=== PATIENT | male | born 1980 | race Caucasian/White ===

== ENCOUNTER 2021-02-13 21:26 | Inpatient (IN) ==
[2021-02-13 21:55] LABS: Bilirubin,Urine Negative (Negative); Blood,Urine Negative (Negative); Clarity,Urine Clear (Clear); Color,Urine Light-Yellow (Yellow); Glucose,Urine (UA) Normal (Normal); Ketones,Urine Negative (Negative); Leukocyte Esterase,Urine Negative (Negative); Nitrite,Urine Negative (Negative); Protein,Urine Trace mg/dL (Neg-Trace); Specific Gravity,Urine 1.029 (1.010-1.025); Urobilinogen,Urine Normal (Normal)
[2021-02-13 22:05] LABS: Basophils % 0.4 %; Eosinophils # 0.2 K/mcL (0.0-0.6); Eosinophils % 2.5 %; Hemoglobin 13.4 g/dL (12.9-16.9); Immature Granulocytes % 0.6 % (0-4); Lymphocytes # 2.1 K/mcL (0.6-4.6); Lymphocytes % 29.5 %; Mean Corpuscular HGB Conc 32.7 g/dL (31.6-35.5); Mean Corpuscular Hemoglobin 29.5 pg (28.0-33.3); Mean Corpuscular Volume 90.1 fL (83.0-100.0); Mean Platelet Volume 10.1 fL (9.4-12.4); Monocytes # 0.6 K/mcL (0.0-1.3); Monocytes % 8.1 %; Neutrophils # 4.2 K/mcL (1.6-8.9); Platelet Count 212 K/mcL (140-400); Red Blood Count 4.55 M/mcL (4.19-5.50); Red Cell Distribution Width 13.9 % (11.5-14.5); Segmented Neutrophils % 58.9 %; White Blood Count 7.2 K/mcL (4.3-11.1)
[2021-02-13 22:17] LABS: Acetaminophen < 10 mcg/mL (10-20); BUN/Creatinine Ratio 20 (6-26); Blood Urea Nitrogen 18 mg/dL (6-20); Calcium 9.6 mg/dL (8.6-10.3); Carbon Dioxide 27 mEq/L (23-29); Chloride 102 mEq/L (98-107); Ethanol < 10 mg/dL (Less than 10); Glucose 115 mg/dL (70-105); Osmolality,Calculated 289 (280-300); Potassium 3.5 mEq/L (3.5-5.1); Salicylate < 2.5 mg/dL (15.0-30.0); Sodium 138 mEq/L (136-145); eGFR For African Americans > 60 (> 60); eGFR For Non-African Americans > 60 (> 60)
[2021-02-13 22:19] LABS: Amphetamine Screen,Urine Positive ng/mL (Cutoff=1000); Barbiturate Screen,Urine Negative ng/mL (Cutoff=200); Benzodiazepines Screen,Urine Negative ng/mL (Cutoff=200); Cannabinoid Screen,Urine Negative ng/mL (Cutoff = 50); Cocaine Screen,Urine Negative ng/mL (Cutoff= 300); Opiate Screen,Urine Negative ng/mL (Cutoff=300); Phencyclidine Screen,Urine Negative ng/mL (Cutoff=25)
[2021-02-13] MEDS ORDERED: Haloperidol Lactate 5 MG/ML VIAL IM ONE (23:58)
[2021-02-14 01:20] LABS: Adenovirus Not Detected (Not Detect); Bordetella Pertussis Not Detected (Not Detect); Chlamydophila pneumoniae Not Detected (Not Detect); Coronavirus 229E Not Detected (Not Detect); Coronavirus HKU1 Not Detected (Not Detect); Coronavirus NL63 Not Detected (Not Detect); Coronavirus OC43 Not Detected (Not Detect); Human Metapneumovirus Not Detected (Not Detect); Human Rhinovirus/Enterovirus Not Detected (Not Detect); Influenza A Subtype 2009 H1 Not Detected (Not Detect); Influenza B Not Detected (Not Detect); Mycoplasma pneumoniae Not Detected (Not Detect); Parainfluenza Virus 1 Not Detected (Not Detect); Parainfluenza Virus 2 Not Detected (Not Detect); Parainfluenza Virus 3 Not Detected (Not Detect); Parainfluenza Virus 4 Not Detected (Not Detect); Respiratory Syncytial Virus Not Detected (Not Detect); SARS-CoV-2 Not Detected (Not Detect)
[2021-02-14] MEDS ORDERED: *HR* LORazepam 1 MG TABLET PO PRN (01:59)
[2021-02-14] MEDS ORDERED: Haloperidol Lactate 5 MG/ML VIAL IM PRN (01:59)
[2021-02-14] MEDS ORDERED: traZODone 50 MG TABLET PO PRN (01:59)
[2021-02-14] MEDS ORDERED: hydrOXYzine pamoate 25 MG CAPSULE PO PRN (01:59)
[2021-02-14] MEDS ORDERED: haloperidoL 5 MG TABLET PO PRN (01:59)
[2021-02-14] MEDS ORDERED: *HR* LORazepam 2 MG/ML VIAL IM PRN (01:59)
[2021-02-14] MEDS ORDERED: Ibuprofen 400 MG TABLET PO PRN (01:59)
[2021-02-14] MEDS ORDERED: MOM Conc 10 ML UD.LIQ PO PRN (13:34)
[2021-02-14] MEDS ORDERED: Mag Hydrox/Al Hydrox/Simeth 30 ML UDC PO PRN (13:34)
[2021-02-14] MEDS ORDERED: *HR* Buprenorphine HCl 8 MG TAB.SUBL SL ONE (15:26)
[2021-02-14] MEDS ORDERED: OLANZapine 5 MG TAB.RAPDIS PO SCH (21:00)
[2021-02-14] MEDS ORDERED: *HR* Buprenorphine HCl 8 MG TAB.SUBL SL SCH (21:00)
[2021-02-15] MEDS ORDERED: OLANZapine 5 MG TAB.RAPDIS PO SCH (09:00)
[2021-02-15] MEDS ORDERED: *HR* Buprenorphine HCl 8 MG TAB.SUBL SL SCH (09:00)
[2021-02-15 10:05] VITALS: BP 99/62; PULSE 74; TEMP 98.6; O2SAT 98
== END 2021-02-15 16:20 | disposition home or self-care (01) | DRG 750 ==
LOC: EMEROOARM 21:26 → 1ANU 02-14 01:48
PROVIDERS: ADMIT Psychiatry & Neurology Psychiatry; ATTEND Psychiatry & Neurology Psychiatry

== ENCOUNTER 2022-03-13 13:35 | Inpatient (IN) ==
[2022-03-13 14:11] LABS: Bilirubin,Urine Negative (Negative); Blood,Urine Negative (Negative); Clarity,Urine Clear (Clear); Color,Urine Yellow (Yellow); Glucose,Urine (UA) Normal (Normal); Ketones,Urine Negative (Negative); Leukocyte Esterase,Urine Negative (Negative); Nitrite,Urine Negative (Negative); PH,Urine 6.5 pH Units (5.0-8.0); Protein,Urine Trace mg/dL (Neg-Trace); Specific Gravity,Urine 1.023 (1.010-1.025); Urobilinogen,Urine Normal (Normal)
[2022-03-13 14:14] LABS: Basophils % 0.3 %; Eosinophils # 0.1 K/mcL (0.0-0.6); Eosinophils % 2.1 %; Hematocrit 47.4 % (37.5-50.1); Hemoglobin 15.5 g/dL (12.9-16.9); Immature Granulocytes % 0.2 % (0-4); Lymphocytes # 1.5 K/mcL (0.6-4.6); Lymphocytes % 23.5 %; Mean Corpuscular HGB Conc 32.7 g/dL (31.6-35.5); Mean Corpuscular Hemoglobin 29.6 pg (28.0-33.3); Mean Corpuscular Volume 90.5 fL (83.0-100.0); Monocytes # 0.4 K/mcL (0.0-1.3); Monocytes % 6.5 %; Neutrophils # 4.3 K/mcL (1.6-8.9); Platelet Count 242 K/mcL (140-400); Red Blood Count 5.24 M/mcL (4.19-5.50); Red Cell Distribution Width 13.4 % (11.5-14.5); Segmented Neutrophils % 67.4 %; White Blood Count 6.3 K/mcL (4.3-11.1)
[2022-03-13 14:32] LABS: Acetaminophen < 10 mcg/mL (10-20); BUN/Creatinine Ratio 11 (6-26); Blood Urea Nitrogen 9 mg/dL (6-20); Calcium 10.5 mg/dL (8.6-10.3); Carbon Dioxide 28 mEq/L (23-29); Chloride 103 mEq/L (98-107); Ethanol < 10 mg/dL (Less than 10); Glucose 109 mg/dL (70-105); Osmolality,Calculated 283 (280-300); Potassium 3.9 mEq/L (3.5-5.1); Salicylate < 2.5 mg/dL (15.0-30.0); Sodium 137 mEq/L (136-145)
[2022-03-13 14:32] LABS: Amphetamine Screen,Urine Positive ng/mL (Cutoff=1000); Barbiturate Screen,Urine Negative ng/mL (Cutoff=200); Benzodiazepines Screen,Urine Negative ng/mL (Cutoff=200); Cannabinoid Screen,Urine Negative ng/mL (Cutoff = 50); Cocaine Screen,Urine Negative ng/mL (Cutoff= 300); Opiate Screen,Urine Negative ng/mL (Cutoff=300); Phencyclidine Screen,Urine Negative ng/mL (Cutoff=25)
[2022-03-14 00:01] LABS: Influenza A PCR Negative (Negative); Influenza B PCR Negative (Negative); Resp. Syncytial Virus PCR Negative (Negative)
[2022-03-14 00:04] LABS: SARS-CoV-2 by PCR (In House) Negative (Negative)
[2022-03-14] MEDS ORDERED: traZODone 50 MG TABLET PO PRN (03:01)
[2022-03-14] MEDS ORDERED: haloperidoL 5 MG TABLET PO PRN (03:01)
[2022-03-14] MEDS ORDERED: Acetaminophen 325 MG TABLET PO PRN (03:01)
[2022-03-14] MEDS ORDERED: hydrOXYzine pamoate 25 MG CAPSULE PO PRN (03:01)
[2022-03-14] MEDS ORDERED: *HR* LORazepam 1 MG TABLET PO PRN (04:00)
[2022-03-14] MEDS ORDERED: *HR* LORazepam 2 MG/ML VIAL IM PRN (04:00)
[2022-03-14] MEDS ORDERED: Haloperidol Lactate 5 MG/ML VIAL IM PRN (04:00)
[2022-03-14] MEDS ORDERED: MOM Conc 10 ML UD.LIQ PO PRN (08:04)
[2022-03-14] MEDS ORDERED: Mag Hydrox/Al Hydrox/Simeth 30 ML UDC PO PRN (08:04)
[2022-03-14] MEDS ORDERED: *HR* Buprenorphine HCl 8 MG TAB.SUBL SL SCH (09:30)
[2022-03-14] MEDS: NALOXONE HCL SL SCH ×2 (11:39→21:07)
[2022-03-14] MEDS: BUPRENORPHINE HCL SL SCH ×2 (11:39→21:07)
[2022-03-14] MEDS: OLANZapine 5 MG TAB.RAPDIS PO SCH (14:07)
[2022-03-14] MEDS: OLANZapine 10 MG TAB.RAPDIS PO SCH (21:07)
[2022-03-15] MEDS: OLANZapine 5 MG TAB.RAPDIS PO SCH (11:17)
[2022-03-15] MEDS: NALOXONE HCL SL SCH ×2 (11:18→20:24)
[2022-03-15] MEDS: BUPRENORPHINE HCL SL SCH ×2 (11:18→20:24)
[2022-03-15] MEDS: OLANZapine 10 MG TAB.RAPDIS PO SCH (20:23)
[2022-03-16] MEDS: NALOXONE HCL SL SCH (10:05)
[2022-03-16] MEDS: BUPRENORPHINE HCL SL SCH (10:05)
[2022-03-16] MEDS: OLANZapine 5 MG TAB.RAPDIS PO SCH (10:07)
[2022-03-16 10:37] VITALS: BP 124/78; PULSE 84; TEMP 97.3; O2SAT 93
[2022-03-16] MEDS ORDERED: *HR* Buprenorphine HCl 8 MG TAB.SUBL SL SCH (19:00)
== END 2022-03-16 14:38 | disposition home or self-care (01) | DRG 752 ==
LOC: EMEROOARM 13:35 → 1ANU 03-14 02:39
PROVIDERS: ADMIT Psychiatry & Neurology Psychiatry; ATTEND Psychiatry & Neurology Psychiatry